=== PATIENT | male | born 1960 | race Native Hawaiian/Other Pacific Islander ===

== ENCOUNTER 2017-07-29 08:49 | Outpatient (CLI) | payer BC | END 2017-07-30 04:36 | disposition home or self-care (01) | LOC: US 08:49 | DX: N17.8 Other acute kidney failure (principal); E78.4 Other hyperlipidemia; I10 Essential (primary) hypertension ==

== ENCOUNTER 2019-02-07 02:00 | Emergency (ER) | payer BC ==
[~2019-02-07] VITALS: Ht 177.8 cm; Wt 120.2 kg
[2019-02-07 02:48] LABS: PLATELET COUNT 162 K/uL (142-355)
[2019-02-07 03:07] LABS: POTASSIUM 4.3 mmol/L (3.6-5.2)
[2019-02-07 04:20] VITALS: BP 142/82; TEMP 98.2
== END 2019-02-07 04:22 | disposition home or self-care (01) ==
LOC: ED 02:00
PROVIDERS: Hospitalist
DX: N20.0 Calculus of kidney (principal); Z87.442 Personal history of urinary calculi
CPT/HCPCS: 36415; 80053; 81000; 82150; 83690; 85027; 96360; 96365; 96374; 96375; 99284; J1170; J1885; J2405

== ENCOUNTER 2019-04-28 08:09 | Outpatient (CLI) | payer BC | END 2019-04-28 20:37 | disposition home or self-care (01) | LOC: US 08:09 | DX: N17.9 Acute kidney failure, unspecified (principal) ==